=== PATIENT | male | born 1990 | race Caucasian/White ===

== ENCOUNTER 2020-08-15 17:54 | Emergency (ER) | payer BC ==
[~2020-08-15] VITALS: Ht 177.8 cm; Wt 79.4 kg
[2020-08-15 18:13] VITALS: BP_SYST 185
[2020-08-15] MEDS ORDERED: CLINDAMYCIN PHOSPHATE 300 MG/2 ML VIAL IM ONE (19:30)
[2020-08-15] MEDS ORDERED: HYDROcodone/ACETAMIN 5-325 MG TAB (NORCO/ VICODIN) PO ONE (19:30)
[2020-08-15] MEDS ORDERED: DILTIAZEM HCL 25 MG/5 ML VIAL IVP ONE (20:30)
[2020-08-15 20:39] VITALS: BP_SYST 161
== END 2020-08-15 20:48 | disposition home or self-care (01) ==
LOC: SED 17:54
DX: N48.1 Balanitis (principal); L03.115 Cellulitis of right lower limb
CPT/HCPCS: 96372; 99283; J3490